=== PATIENT | male | born 1950 | race Caucasian/White ===

== ENCOUNTER 2024-08-22 11:32 | Emergency (ER) | payer MEDICARE, OTHER ==
[~2024-08-22 11:32] MED LIST: Iopamidol 370 76% 100 ML VIAL ONE
[2024-08-22 11:54] LABS: #Lymphocytes 0.5 thou/uL (1.20-3.40); #Monocytes 0.4 thou/uL (0.11-0.59); #Neutrophils 4.9 thou/uL (1.40-6.50); %Basophils 0.8 % (0.0-1.0); %Eosinophils 0.1 % (0.0-10.0); %Lymphocytes 8.1 % (21.0-51.0); %Monocytes 6.5 % (0.0-10.0); %Neutrophils 84.4 % (42.0-75.0); Hematocrit 46.4 % (42.0-52.0); Hemoglobin 15.4 g/dL (14.0-18.0); Mean Corpuscular HGB CONC 33.3 g/dL (32.0-36.0); Mean Platelet Volume 9.1 fL (7.4-10.4); Platelet Count 211 10x3/uL (130-400); RBC Distribution Width 12.2 % (11.5-14.5); Red Blood Cell (RBC) Count 4.99 mill/uL (4.70-6.10); White Blood Cell (WBC) Count 5.8 10x3/uL (4.8-10.8)
[2024-08-22 12:04] LABS: INR-International Normal Ratio 1.1; Prothrombin Time 14.2 sec (12.0-14.7)
[2024-08-22 12:05] LABS: PTT 26.5 sec (22.9-36.1)
[2024-08-22 12:08] LABS: Acetaminophen Less than 10 mcg/mL (Less than 10); Alcohol Less than 10.0 mg/dL (Less than 10); Salicylate Less than 8.0 mg/dL (Less than 8.0)
[2024-08-22 12:09] LABS: Troponin I 0.073 ng/mL (< 0.028)
[2024-08-22 12:12] LABS: Base Excess-Venous 0.1 mmol/L (-2.0 to 3.0); Bicarbonate (HCO3v) 25.4 mmol/L (22.0-28.0); CO2 Tension (PvCO2) 42.3 mmHg (42.0-51.0); Calcium, Ionized 1.15 mmol/L (1.15-1.33); Chloride 107 mmol/L (98-107); Hemoglobin - Calc 14.7 g/dL (14.0-18.0); Potassium 4.2 mmol/L (3.5-5.1); Sodium 141 mmol/L (138-145); T. Carbon Dioxide 26.7 mmol/L (22.0-28.0); vO2 Saturation-calc 98.8 % (60.0-85.0)
[2024-08-22 12:16] LABS: ALT (SGPT) 20 U/L (8-55); AST (SGOT) 13 U/L (5-34); Albumin 3.9 g/dL (3.4-4.8); Alkaline Phosphatase 143 U/L (40-110); Anion Gap 16 mmol/L (10-20); BUN (Urea Nitrogen) 20 mg/dL (8.4-25.7); Bilirubin, Total 0.7 mg/dL (0.2-1.2); Calc. Creatinine Clearance 0 mL/min (70-130); Calcium 9.3 mg/dL (7.8-10.44); Carbon Dioxide 24 mmol/L (23-31); Chloride 104 mmol/L (98-107); Estimated GFR 50; Globulin 3.6 g/dL (2.4-3.5); Potassium 4.1 mmol/L (3.5-5.1); Protein, Total 7.5 g/dL (5.8-8.1); Sodium 140 mmol/L (136-145)
[2024-08-22 12:17] LABS: Glucose 569 mg/dL (83-110)
[2024-08-22] MEDS ORDERED: Sodium Chloride 0.9% 1,000 ML ONE (12:19)
[2024-08-22] MEDS ORDERED: cloNIDine 0.1 MG TAB ONE (13:02)
[2024-08-22 13:09] LABS: Bilirubin Negative (Negative); Blood, Urine Trace (Negative); Glucose, Urine (Dipstick) >=1000 mg/dL (Negative); Ketone, Urine 40 mg/dL (Negative); Leukocyte Trace (Negative); Nitrite Negative (Negative); Protein, Urine (Dipstick) 100 mg/dL (Neg-Trace); Urobilinogen 0.2 mg/dL (Less than 2); pH, Urine 5.5 (5.0-9.0)
[2024-08-22 13:16] LABS: Clarity Hazy (Clear)
[2024-08-22 13:18] LABS: Amphetamine Not Detected (NotDetected); Bacteria/HPF 1+ HPF (None Seen); Barbiturates Screen Not Detected (NotDetected); Benzodiazepine Screen Not Detected (NotDetected); CAUTI Indications for Culture Alt mental st,lethar; Cocaine Metabolite Screen Not Detected (NotDetected); Methadone Not Detected (NotDetected); Methamphetamine Not Detected (NotDetected); Opiate Screen Not Detected (NotDetected); Oxycodone Screen Not Detected (NotDetected); Phencyclidine (PCP) Not Detected (NotDetected); Squamous Epithelial 0-3 HPF (0-3); THC/Cannabinoid Screen Not Detected (NotDetected); Tricyclic Screen Not Detected (NotDetected); Yeast-Budding 2+ HPF (None Seen)
[2024-08-22 13:19] LABS: Urine Culture Reflex No No
[2024-08-22] MEDS ORDERED: cefTRIAXone (ROCEPHIN) 2 GM VIAL ONE (13:25)
[2024-08-22] MEDS ORDERED: Insulin Regular, Human 100 UNIT/ML 10 ML VIAL ONE (13:25)
[2024-08-22] MEDS ORDERED: Sodium Chloride 0.9% 100 ML ONE (13:25)
[2024-08-22 20:17] LABS: Troponin I 0.079 ng/mL (< 0.028)
[2024-08-22 21:04] LABS: Anion Gap 13 mmol/L (10-20); BUN (Urea Nitrogen) 18 mg/dL (8.4-25.7); Calc. Creatinine Clearance 0 mL/min (70-130); Calcium 8.2 mg/dL (7.8-10.44); Carbon Dioxide 25 mmol/L (23-31); Chloride 106 mmol/L (98-107); Estimated GFR 66; Sodium 140 mmol/L (136-145)
[2024-08-22 21:11] LABS: Critical Call Chemistry NUR.RG3@2113; Glucose 407 mg/dL (83-110); Potassium 4.4 mmol/L (3.5-5.1)
[2024-08-23] MEDS ORDERED: cloNIDine 0.1 MG TAB ONE (00:01)
[2024-08-23] MEDS ORDERED: Sertraline 100 MG TAB PO SCH (10:30)
[2024-08-23] MEDS ORDERED: Rivaroxaban 10 MG TAB PO SCH (10:30)
[2024-08-23] MEDS ORDERED: Lantus 1000 UNITS/10 ML VIAL SC SCH (10:30)
[2024-08-23] MEDS ORDERED: Primidone 50 MG TAB PO SCH ×2 (10:30→19:15)
[2024-08-23] MEDS ORDERED: Ezetimibe 10 MG TAB PO SCH (10:30)
[2024-08-23] MEDS ORDERED: Carvedilol 6.25 MG TAB PO SCH (10:30)
[2024-08-23] MEDS ORDERED: Insulin Lispro 100 UNIT/ML 10 ML VIAL SC SCH (10:30)
[2024-08-23] MEDS ORDERED: Donepezil HCl 10 MG TAB PO SCH (10:30)
[2024-08-23] MEDS ORDERED: Losartan 50 MG TAB ONE ×2 (10:45→18:55)
[2024-08-23] MEDS ORDERED: Carvedilol 3.125 MG TAB ONE (18:55)
[2024-08-24] MEDS ORDERED: Losartan 50 MG TAB ONE (08:05)
[2024-08-24] MEDS ORDERED: Carvedilol 25 MG TAB ONE (08:05)
[2024-08-24] MEDS ORDERED: Sertraline 25 MG TAB ONE (08:06)
[2024-08-24] MEDS ORDERED: Donepezil HCl 10 MG TAB PO SCH (08:30)
[2024-08-24] MEDS ORDERED: Rivaroxaban 10 MG TAB PO SCH (08:30)
[2024-08-24] MEDS ORDERED: Primidone 50 MG TAB PO SCH (08:30)
== END 2024-08-24 10:55 | disposition home or self-care (01) ==
LOC: NAV ERS 11:32
DX: R41.82 Altered mental status, unspecified (principal); R79.89 Other specified abnormal findings of blood chemistry; N30.90 Cystitis, unspecified without hematuria; I10 Essential (primary) hypertension; E11.40 Type 2 diabetes mellitus with diabetic neuropathy, unspecified; R53.1 Weakness; E11.65 Type 2 diabetes mellitus with hyperglycemia; F03.90 Unspecified dementia, unspecified severity, without behavioral disturbance, psychotic disturbance, mood disturbance, and anxiety; I48.91 Unspecified atrial fibrillation; Z86.73 Personal history of transient ischemic attack (TIA), and cerebral infarction without residual deficits; Z79.899 Other long term (current) drug therapy; Z79.4 Long term (current) use of insulin; Z79.01 Long term (current) use of anticoagulants
CPT/HCPCS: 36415; 36416; 70450; 70496; 70498; 71045; 71046; 80053; 80306; 80307; 81001; 82010; 82330; 82803; 83605; 84443; 84484; 85025; 85610; 85730; 87086; 93005; 96361; 96365; 96375; 96376; J0696; J1815; J7030; Q9967